=== PATIENT | male | born 1995 | race Caucasian/White ===

== ENCOUNTER 2017-05-28 12:11 | Emergency (ER) | payer MEDICAID ==
[2017-05-28 13:53] LABS: APPEARANCE CLEAR (CLEAR); BACTERIA FEW /hpf (NONE SEEN); BILIRUBIN NEGATIVE (NEGATIVE); COLOR YELLOW (YELLOW); EPITHELIAL CELLS OCC /hpf (0-5); GLUCOSE NEGATIVE (NEGATIVE); KETONE NEGATIVE (NEGATIVE); NITRITE NEGATIVE (NEGATIVE); PROTEIN NEGATIVE (NEGATIVE); UROBILINOGEN NORMAL (NORMAL); WHITE CELLS - URINE RARE /hpf (0-5)
== END 2017-05-28 14:48 | disposition home or self-care (01) ==
LOC: D.ER 12:11
PROVIDERS: Nurse Practitioner Family
DX: N39.0 Urinary tract infection, site not specified (principal); M54.5 Low back pain

== ENCOUNTER 2017-11-13 18:57 | Emergency (ER) | payer MEDICAID ==
[~2017-11-13] VITALS: Ht 188 cm; Wt 134.1 kg
[2017-11-13 19:11] VITALS: BP 92/72; Ht 188 cm; Wt 134.1 kg
[2017-11-13] MEDS ORDERED: CELEXA20 MG PO (19:14)
== END 2017-11-13 21:15 | disposition left against medical advice (07) ==
LOC: D.ER 18:57
DX: L02.212 Cutaneous abscess of back [any part, except buttock and flank] (principal)